=== PATIENT | male | born 1985 | race Two or more races ===

== ENCOUNTER 2020-05-18 15:13 | Emergency (ER) | payer OTHER ==
[~2020-05-18] VITALS: Ht 177.8 cm; Wt 99.8 kg
[2020-05-18] MEDS ORDERED: LORAZEPAM 1 MG TABLET PO ONE (16:30)
[2020-05-18] MEDS ORDERED: LORAZEPAM 1 MG TABLET ONE (16:32)
--- NOTE | 2020-05-18 16:37 | NUR ---
[email or web address]. anxiety attack while at work. PT AAOX4, VSS. RR EVEN & UNLABORED. DENIES CP, SOB, DIZZINESS, N/V AT THIS TIME. PT SEEN & EVAL'D BY LEANA MONDRAGON. MEDICATED ORDRED, PT TAWNY WELL. PT CALM & COOPERATIVE. WILL CONT TO MONITOR.
[2020-05-18 17:03] VITALS: BP 125/76
--- NOTE | 2020-05-18 17:03 | NUR ---
Patient discharged to home in stable condition. Written and verbal after care instructions given. Patient verbalizes understanding of instruction.
== END 2020-05-18 17:03 | disposition home or self-care (01) ==
LOC: ER 15:19
DX: F41.9 Anxiety disorder, unspecified (principal); J45.909 Unspecified asthma, uncomplicated